=== PATIENT | female | born 1980 | race Caucasian/White ===

== ENCOUNTER 2017-02-09 10:37 | Emergency (ER) | payer BC, OTHER ==
[~2017-02-09] VITALS: Ht 157.5 cm; Wt 64.3 kg
[~2017-02-09 10:37] MED LIST: AMPH1TAB83 PO; AMPH30CA3 PO; ASCO500T16 PO; ATV/1 PO; CHOL100010 PO; CPXI SC; GABA-1218 PO; MECL1TAB42 PO; MULT-506 PO; OMEP40CA PO; ONDA4TAB7 SL; zinc PO
[2017-02-09 10:51] VITALS: TEMP 36.9; Ht 157.5 cm; Wt 64.3 kg
[2017-02-09] MEDS ORDERED: SODIUM CHLORIDE 0.9% 1000ML 1,000 ML IV STA (11:09)
[2017-02-09] MEDS ORDERED: ONDANSETRON INJ 2 MG/ML 2 ML VIAL IV STA (11:09)
--- NOTE | 2017-02-09 11:28 | DIAGNOSTIC IMAGING REPORT ---
CHEST ONE VIEW PORTABLE CLINICAL HISTORY: Pain, radiating to the abdomen COMPARISON STUDY: 11/01/2014 FINDINGS: The cardiac and mediastinal contours are normal. There is no evidence of focal pulmonary consolidation. There is no evidence of failure. No pleural effusions are visualized.[ No free intraperitoneal air is visualized IMPRESSION: No active disease in the chest. Electronically signed by: Dirk Brower M.D. 02/09/2017 11:26 AM Dictated Date/Time: 02/09/2017 11:26 AM
[2017-02-09] MEDS ORDERED: AMPH20TA2 PO (11:37)
[2017-02-09] MEDS ORDERED: AMPH30CA3 PO (11:37)
[2017-02-09] MEDS ORDERED: CHOL1TAB53 PO (11:42)
[2017-02-09] MEDS ORDERED: OMEP40CA41 PO (11:44)
[2017-02-09] MEDS ORDERED: OPTIRAY 320 IV PRN (11:45)
[2017-02-09] MEDS ORDERED: METH500T37 PO (11:47)
[2017-02-09] MEDS ORDERED: ASPI-390 PO (11:48)
[2017-02-09 11:52] LABS: BASO % 0.4 %; BASO ABS # 0.04 K/uL (0-0.2); COMPLETE YES; EOS % 3.1 %; HEMATOCRIT 46.3 % (37-47); IG% 0.1 %; LYMPH % 26.7 %; LYMPH ABS # 2.79 K/uL (1.2-3.4); MEAN CELL VOLUME 90.3 fL (80-100); MEAN CORPUSCULAR HEMOGLOBIN 31.6 pg (25-34); MEAN PLATELET VOLUME 10.1 fL (7.4-10.4); MONO % 5.2 %; NEUT % 64.5 %; PLATELET COUNT 333 K/uL (130-400); RED BLOOD COUNT 5.13 M/uL (4.2-5.4); WHITE BLOOD COUNT 10.44 K/uL (4.8-10.8)
[2017-02-09 12:16] LABS: BUN/CREATININE RATIO 14.1 (10-20); CALCIUM 9.3 mg/dl (8.5-10.1); CREATININE 0.93 mg/dl (0.60-1.20); POTASSIUM 3.7 mmol/L (3.5-5.1)
--- NOTE | 2017-02-09 14:27 | DIAGNOSTIC IMAGING REPORT ---
CT ABD/PELVIS IV AND ORAL CONT CLINICAL HISTORY: Diffuse abdominal pain, nausea, bloody stools. Diarrhea. COMPARISON STUDY: 03/07/2014 TECHNIQUE: Following the IV administration of 93 mL of Optiray-320, CT scan of the abdomen and pelvis was performed from the lung bases to the proximal femurs. Images are reviewed in the axial, sagittal, and coronal planes. IV contrast was administered without complication. CT DOSE: 273.85 mGy.cm FINDINGS: Lower chest: The heart is normal in size and configuration, without pericardial effusion. The lung bases and pleural spaces are clear. Liver: The contrast-enhanced liver is normal in size, contour, and attenuation. There is no intrahepatic biliary ductal dilatation. The hepatic veins and portal veins are patent. Gallbladder: Unremarkable. Spleen: Normal in size and attenuation. Pancreas: Unremarkable. Adrenal glands: Unremarkable. Kidneys: There is symmetric renal cortical enhancement. The kidneys are normal in size without hydronephrosis. Bowel: There are areas of colonic bowel wall thickening, most pronounced involving the transverse colon. The findings are consistent with nonspecific colitis. The appendix appears normal. Peritoneum: There is no intraperitoneal free air or abdominal ascites. Vasculature: The abdominal aorta is normal in course and caliber. Adenopathy: There are mildly prominent para-aortic lymph nodes, similar to the prior March 2014 study. Pelvic viscera: There is a 6.8 cm pelvic hypodense lesion abutting the uterus and left ovary. This likely represents either a left ovarian cyst or paraovarian cyst. The lesion exceeds water attenuation and may be hemorrhagic. Short-term ultrasound follow-up is recommended. Skeletal structures: No destructive osseous lesions are seen. IMPRESSION: 1. Mild bowel wall thickening involving the splenic flexure and transverse colon. A nonspecific colitis is suspected. Clinical follow-up is advocated 2. 6.8 cm hypodense pelvic mass abutting the uterus left ovary. This exceeds water attenuation and this lesion may be hemorrhagic or proteinaceous. A left ovarian cystic lesion or paraovarian cyst is favored. Ultrasound follow-up is recommended. 3. No evidence of bowel obstruction. No evidence of free air. Electronically signed by: Dirk Brower M.D. 02/09/2017 2:26 PM Dictated Date/Time: 02/09/2017 2:19 PM
[2017-02-09 14:33] LABS: URINE APPEARANCE CLEAR (CLEAR); URINE BILIRUBIN NEG (NEG); URINE COLOR YELLOW; URINE NITRITE NEG (NEG); URINE SPECIFIC GRAVITY 1.009 (1.000-1.030); UROBILINOGEN NEG (NEG); ZZUR CULT IF INDIC CLEAN CATCH NO
[2017-02-09 14:38] LABS: MANUAL MICROSCOPIC REQUIRED? NO; REVIEW REQ? NO
--- NOTE | 2017-02-09 14:57 | EMERGENCY ROOM VISIT NOTE ---
History Report prepared by Marcia: Fara Damian Under the Supervision of: Dr. Taran Tobin D.O. First contact with patient: 11:09 Chief Complaint: NAUSEA Stated Complaint: NAUSEA, DIZZINESS,WEAKNESS, BLOODY STOOL, DIAHREAH Nursing Triage Summary: triage note: pt report she had two episodes of red blood in stool today. pt reports nausea, headache, dizziness, shortness of breath. History of Present Illness The patient is a 37 year old female who presents to the Emergency Room with complaints of 2 episodes of bloody stools beginning this morning. The patient states that she has not been feeling good for 2 days and this morning she had 2 episodes of blood in the stool that was worse than she has ever seen before. She notes that she has bowel issues frequently and bloody stools intermittently over the last few years. She repots that she has been feeling very nauseous over the last 2 days and felt like vomiting might help but she was not able to. She complains of watery diarrhea beginning this morning with the bloody stool, headache, dizziness, shortness of breath, weakness, tiredness, and abdominal cramping beginning this morning. She denies any vomiting. The patient reports a history of MS and endometriosis. Source of History: patient Onset: this morning Position: other (global) Quality: other (bloody stool) Timing: other (2 episodes) Associated Symptoms: + SOB, + abdominal pain, + diarrhea, + headache, + nausea, + weakness, No vomiting Note: She complains of dizziness, tiredness. Review of Systems See HPI for pertinent positives & negatives. A total of 10 systems reviewed and were otherwise negative. Past Medical & Surgical Medical Problems: (1) Asthma (2) Depression (3) MS (multiple sclerosis) Family History Hypertension Lung disease Social History Smoking Status: Current Every Day Smoker Alcohol Use: none Marital Status: Housing Status: lives with significant other Occupation Status: other Current/Historical Medications Scheduled Amphetamine-Dextroamphetamine 20MG (Adderall 20MG), 20 MG PO BID Amphetamine-Dextroamphetamine 30MG (Adderall Xr 30MG), 30 MG PO DAILY Fsfsnxn-Zybyddwvwxsjv-Lydiuhol (Excedrin Migraine), 2 TABS PO BID Cholecalciferol (D 1000), 1,000 UNITS PO DAILY Gabapentin (Neurontin), 600 MG PO TID Glatiramer Acetate (Copaxone), 20 MG SC DAILY Lorazepam (Ativan), 1 MG PO HS Multivitamin (Multivitamin), 1 TAB PO DAILY Scheduled PRN Ascorbic Acid (Ascorbic Acid), 1,000 MG PO for prevention Meclizine Hcl (Meclizine Hcl), 25 MG PO for Dizziness or Vertigo Methocarbamol (Robaxin), 500 MG PO TID PRN for SPASMS Omeprazole (Prilosec), 40 MG PO DAILY PRN for Heartburn Allergies Coded Allergies: Moxifloxacin (Verified Adverse Reaction, Intermediate, SICK, 02/09/17) 'DEATHLY SICK" Quinolones (Verified Adverse Reaction, Intermediate, MOXI-SEVERE NAUSEA, ) Sulfa Antibiotics (Unverified Adverse Reaction, Unknown, YEAST INFECTIONS , 02/09/17) PATIENT DOESN'T WANT Physical Exam Vital Signs Date Time Temp Pulse Resp B/P Pulse Ox O2 Delivery O2 Flow Rate FiO2 02/09/17 12:52 86 18 105/78 100 Room Air 02/09/17 10:51 36.9 94 18 134/92 99 Room Air Physical Exam CONSTITUTIONAL/VITAL SIGNS: Reviewed / noted above. GENERAL: Non-toxic in appearance. INTEGUMENTARY: Warm, dry, and [place]. HEAD: Normocephalic. EYES: without scleral icterus or trauma. ENT/OROPHARYNX: clear and moist. LYMPHADENOPATHY/NECK: Is supple without lymphadenopathy or meningismus. RESPIRATORY: Lungs clear and equal. CARDIOVASCULAR: Regular rate and rhythm. GI/ABDOMEN: Soft and nontender. No organomegaly or pulsatile mass. No rebound or guarding. Normal bowel sounds. EXTREMITIES: Warm and well perfused. BACK: No CVA tenderness. NEUROLOGICAL: Intact without focal deficits. PSYCHIATRIC: normal affect. MUSCULOSKELETAL: Normally developed with good muscle tone. RECTAL: Gross blood on rectal exam. Medical Decision & Procedures ER Provider Diagnostic Interpretation: Radiology results as stated below per my review and radiologist interpretation: CHEST ONE VIEW PORTABLE FINDINGS: The cardiac and mediastinal contours are normal. There is no evidence of focal pulmonary consolidation. There is no evidence of failure. No pleural effusions are visualized.[ No free intraperitoneal air is visualized IMPRESSION: No active disease in the chest. Electronically signed by: Dirk Brower M.D. 02/09/2017 11:26 AM Dictated Date/Time: 02/09/2017 11:[address] ABD/PELVIS IV AND ORAL CONT FINDINGS: Lower chest: The heart is normal in size and configuration, without pericardial effusion. The lung bases and pleural spaces are clear. Liver: The contrast-enhanced liver is normal in size, contour, and attenuation. There is no intrahepatic biliary ductal dilatation. The hepatic veins and portal veins are patent. Gallbladder: Unremarkable. Spleen: Normal in size and attenuation. Pancreas: Unremarkable. Adrenal glands: Unremarkable. Kidneys: There is symmetric renal cortical enhancement. The kidneys are normal in size without hydronephrosis. Bowel: There are areas of colonic bowel wall thickening, most pronounced involving the transverse colon. The findings are consistent with nonspecific colitis. The appendix appears normal. Peritoneum: There is no intraperitoneal free air or abdominal ascites. Vasculature: The abdominal aorta is normal in course and caliber. Adenopathy: There are mildly prominent para-aortic lymph nodes, similar to the prior March 2014 study. Pelvic viscera: There is a 6.8 cm pelvic hypodense lesion abutting the uterus and left ovary. This likely represents either a left ovarian cyst or paraovarian cyst. The lesion exceeds water attenuation and may be hemorrhagic. Short-term ultrasound follow-up is recommended. Skeletal structures: No destructive osseous lesions are seen. IMPRESSION: 1. Mild bowel wall thickening involving the splenic flexure and transverse colon. A nonspecific colitis is suspected. Clinical follow-up is advocated 2. 6.8 cm hypodense pelvic mass abutting the uterus left ovary. This exceeds water attenuation and this lesion may be hemorrhagic or proteinaceous. A left ovarian cystic lesion or paraovarian cyst is favored. Ultrasound follow-up is recommended. 3. No evidence of bowel obstruction. No evidence of free air. Electronically signed by: Dirk Brower M.D. 02/09/2017 2:26 PM Dictated Date/Time: 02/09/2017 2:19 PM Laboratory Results 02/09/17 11:30 Red Blood Count 5.13, Mean Corpuscular Volume 90.3, Mean Corpuscular Hemoglobin 31.6, Mean Corpuscular Hemoglobin Concent 35.0, Mean Platelet Volume 10.1, Neutrophils (%) (Auto) 64.5, Lymphocytes (%) (Auto) 26.7, Monocytes (%) (Auto) 5.2, Eosinophils (%) (Auto) 3.1, Basophils (%) (Auto) 0.4, Neutrophils # (Auto) 6.74, Lymphocytes # (Auto) 2.79, Monocytes # (Auto) 0.54, Eosinophils # (Auto) 0.32, Basophils # (Auto) 0.04 02/09/17 11:30 Test 02/09/17 11:30 02/09/17 14:00 White Blood Count 10.44 K/uL (4.8-10.8) Red Blood Count 5.13 M/uL (4.2-5.4) Hemoglobin 16.2 g/dL (12.0-16.0) Hematocrit 46.3 % (37-47) Mean Corpuscular Volume 90.3 fL (80-100) Mean Corpuscular Hemoglobin 31.6 pg (25-34) Mean Corpuscular Hemoglobin Concent 35.0 g/dl (32-36) Platelet Count 333 K/uL (130-400) Mean Platelet Volume 10.1 fL (7.4-10.4) Neutrophils (%) (Auto) 64.5 % Lymphocytes (%) (Auto) 26.7 % Monocytes (%) (Auto) 5.2 % Eosinophils (%) (Auto) 3.1 % Basophils (%) (Auto) 0.4 % Neutrophils # (Auto) 6.74 K/uL (1.4-6.5) Lymphocytes # (Auto) 2.79 K/uL (1.2-3.4) Monocytes # (Auto) 0.54 K/uL (0.11-0.59) Eosinophils # (Auto) 0.32 K/uL (0-0.5) Basophils # (Auto) 0.04 K/uL (0-0.2) RDW Standard Deviation 43.1 fL (36.4-46.3) RDW Coefficient of Variation 13.0 % (11.5-14.5) Immature Granulocyte % (Auto) 0.1 % Immature Granulocyte # (Auto) 0.01 K/uL (0.00-0.02) Anion Gap 6.0 mmol/L (3-11) Est Creatinine Clear Calc Drug Dose 72.2 ml/min Estimated GFR () 90.4 Estimated GFR (Non- 78.0 BUN/Creatinine Ratio 14.1 (10-20) Calcium Level 9.3 mg/dl (8.5-10.1) Total Bilirubin 0.8 mg/dl (0.2-1) Direct Bilirubin 0.2 mg/dl (0-0.2) Aspartate Amino Transf (AST/SGOT) 13 U/L (15-37) Alanine Aminotransferase (ALT/SGPT) 23 U/L (12-78) Alkaline Phosphatase 84 U/L (45-117) Total Protein 8.6 gm/dl (6.4-8.2) Albumin 5.0 gm/dl (3.4-5.0) Lipase 203 U/L (73-393) Urine Color YELLOW Urine Appearance CLEAR (CLEAR) Urine pH 5.0 (4.5-7.5) Urine Specific [place] 1.009 (1.000-1.030) Urine Protein NEG (NEG) Urine Glucose (UA) NEG (NEG) Urine Ketones NEG (NEG) Urine Occult Blood NEG (NEG) Urine Nitrite NEG (NEG) Urine Bilirubin NEG (NEG) Urine Urobilinogen NEG (NEG) Urine Leukocyte Esterase TRACE (NEG) Urine WBC (Auto) 1-5 /hpf (0-5) Urine RBC (Auto) 0-4 /hpf (0-4) Urine Hyaline Casts (Auto) 1-5 /lpf (0-5) Urine Epithelial Cells (Auto) 10-20 /lpf (0-5) Urine Bacteria (Auto) NEG (NEG) Urine Test NEG (NEG) Laboratory results as stated above per my review. Medications Administered Medications (Trade) Dose Ordered Sig/Emile Route Start Time Stop Time Status Last Admin Dose Admin Sodium Chloride (Nss 1000ml) 1,000 ml @ 999 mls/hr Q1H1M STAT IV 02/09/17 11:09 02/09/17 12:09 DC 02/09/17 11:35 999 MLS/HR Ondansetron HCl (Zofran Inj) 4 mg NOW STAT IV 02/09/17 11:09 02/09/17 11:10 DC 02/09/17 11:35 4 MG ECG Indication: nausea Rate (beats per minute): 76 Rhythm: normal sinus Findings: no ectopy, other (no acute injury) ED Course 1108: Previous medical records were reviewed. The patient was evaluated in room C5. A complete history and physical examination was performed. 1109: Zofran Inj 4mg IV, Sodium Chloride 1000 ml @ 999 mls/hr IV. 1434: I reevaluated the patient and she is doing well. 1448: On reevaluation, the patient is doing well. I discussed the results and findings with the patient. She verbalized agreement of the treatment plan. The patient was discharged home. Medical Decision Differential diagnosis: Etiologies such as diverticulosis, AVM, coagulopathy, colitis, inflammatory bowel disease, malignancy, Lydia-Miranda tear, esophagitis, peptic ulcer disease , variceal bleed, gastritis, epistaxis, fissure, hemorrhoids, as well as others were entertained. This is a 37-year-old female who presents to the ED with a chief complaint of blood in her stool with a bowel movement this morning as well as some nausea for the past 2 days. The patient states that she has been having intermittent diarrhea and constipation. She states that she does see blood in her stools periodically about once a month or once every couple of months for the past couple of years. She felt that she might have irritable bowel syndrome. She reports a history of fibromyalgia. The patient denies any other significant symptoms at this time. Her vital signs are stable. Exam revealed some gross blood on rectal exam otherwise unremarkable exam. CBC is normal. Complete metabolic panel was unremarkable. Lipase is negative. A chest x-ray was negative for acute disease. CT scan of the abdomen and pelvis reveals a 6.8 cm cyst in the para ovarian area. There was also some nonspecific colitis findings. The patient was told the results. She is told to follow-up with GI for colonoscopy. She is also going to follow-up with her spinner continuous. Impression Primary Impression: GI bleeding Additional Impression: Cyst of ovary Scribe Attestation The scribe's documentation has been prepared under my direction and personally reviewed by me in its entirety. I confirm that the note above accurately reflects all work, treatment, procedures, and medical decision making performed by me. Departure Information Dispostion Home / Self-Care Referrals Kevin Simmons M.D. (PCP) Tiago Leblanc MD Patient Instructions My [facility] Additional Instructions Follow-up with Dr. Leblanc for further evaluation of your intestinal bleeding and colonoscopy. Follow-up with your spinner continuous for the 7 cm ovarian cyst. Return for any concerns or worsening. Problem Qualifiers
[2017-02-09 15:00] VITALS: BP 127/84; PULSE 70; O2SAT 100
== END 2017-02-09 15:00 | disposition home or self-care (01) ==
LOC: C.EDB 10:40 → C.EDC 15:00
DX: K92.2 Gastrointestinal hemorrhage, unspecified (principal); N83.209 Unspecified ovarian cyst, unspecified side; F32.9 Major depressive disorder, single episode, unspecified; J45.909 Unspecified asthma, uncomplicated; G35 Multiple sclerosis; F17.200 Nicotine dependence, unspecified, uncomplicated; Z79.82 Long term (current) use of aspirin; Z79.899 Other long term (current) drug therapy; Z88.2 Allergy status to sulfonamides; Z88.8 Allergy status to other drugs, medicaments and biological substances; Z82.49 Family history of ischemic heart disease and other diseases of the circulatory system

== ENCOUNTER → 2017-03-09 | Outpatient (CLI) | payer BC, OTHER ==
[~2017-03-09] MED LIST changes: -AMPH1TAB83 PO; +AMPH20TA2 PO; +ASPI-390 PO; -CHOL100010 PO; +CHOL1TAB53 PO; +METH500T37 PO; -OMEP40CA PO; +OMEP40CA41 PO; -ONDA4TAB7 SL; -zinc PO
== END | disposition home or self-care (01) ==
LOC: C.LAB1850 12:18
PROVIDERS: ATTEND Obstetrics & Gynecology
DX: N80.9 Endometriosis, unspecified (principal); D27.1 Benign neoplasm of left ovary

== ENCOUNTER → 2017-09-22 | Outpatient (CLI) | payer BC, OTHER ==
[~2017-09-22] MED LIST changes: +GADAVIST IV PRN
--- NOTE | 2017-09-22 18:11 | DIAGNOSTIC IMAGING REPORT ---
PELVIC COMBO HISTORY: Abnormal CT. NONINFLAMMATORY DISORDER OF OVARY, FALLOPIAN TUBE TECHNIQUE: Multiplanar multisequence MRI of the pelvis performed both before and after intravenous administration of contrast. COMPARISON STUDY: Abdomen and pelvis CT 02/09/2017. FINDINGS: There is again noted a 6.6 x 5.5 cm T1 hyperintense, T2 hypointense well-circumscribed lesion which appears contiguous with the left ovary. No significant enhancement. However, this is difficult to confirm due to the T1 hypointense signal. Therefore, this is consistent with an endometrioma. Additional punctate foci of T1 hyperintense signal within the left ovary suggesting additional foci of endometriosis. Normal left artery containing a few small follicles/cysts. This measures 3.4 cm. The uterus is displaced to the right from the left adnexal lesion. The endovaginal stripe measures approximate 3 mm in thickness. No pelvic lymphadenopathy. Trace pelvic free fluid. No suspicious lytic or blastic osseous lesions. The uterus measures approximately 5.0 x 3.3 cm. IMPRESSION: 1. No significant change in the 6.6 x 5.5 cm left adnexal lesion. This is consistent with an endometrioma. 2. Normal uterus and right ovary. Electronically signed by: Diaz Gaitan M.D. 09/22/2017 6:10 PM Dictated Date/Time: 09/22/2017 5:59 PM
== END | disposition home or self-care (01) ==
LOC: C.MRI 16:05
PROVIDERS: ATTEND Obstetrics & Gynecology
DX: N83.9 Noninflammatory disorder of ovary, fallopian tube and broad ligament, unspecified (principal)